=== PATIENT | male | born 1950 | race Caucasian/White ===

== ENCOUNTER → 2017-10-17 | Outpatient (CLI) | payer MEDICARE, BC ==
[~2017-10-17] MED LIST: GADOBUTROL 10 MMOL/10 ML PFS ONE
== END | disposition home or self-care (01) ==
LOC: CFH 13:56
PROVIDERS: ATTEND Genetic Counselor, MS
DX: K74.60 Unspecified cirrhosis of liver (principal); R16.1 Splenomegaly, not elsewhere classified
CPT/HCPCS: 74183; A9585

== ENCOUNTER 2017-10-20 11:01 | Day surgery (SDC) | payer OTHER, BC ==
[~2017-10-20] VITALS: Ht 198.1 cm; Wt 104.8 kg
[2017-10-20] MEDS ORDERED: LIDOCAINE 1%, 20ML ONE (11:35)
[2017-10-20 11:46] VITALS: BP 154/84
[2017-10-20 12:46] LABS: INTERNATIONAL NORMALIZED RATIO 1.24 (0.93-1.1); PROTHROMBIN TIME 12.7 Seconds (9.6-11.5)
[2017-10-20] MEDS ORDERED: FENTANYL PF 100 MCG/2ML ONE ×2 (13:20→14:13)
[2017-10-20] MEDS ORDERED: FLUMAZENIL 0.1 MG/1 ML, 5ML ONE (13:21)
[2017-10-20] MEDS ORDERED: MIDAZOLAM 1 MG/ML, 2ML ONE ×2 (13:21→14:14)
[2017-10-20] MEDS ORDERED: NALOXONE 1 MG/ML, 2ML ONE (13:21)
== END 2017-10-20 16:45 | disposition home or self-care (01) ==
LOC: OUT 11:01
PROVIDERS: ATTEND Genetic Counselor, MS
DX: K74.60 Unspecified cirrhosis of liver (principal); K74.0 Hepatic fibrosis; K76.0 Fatty (change of) liver, not elsewhere classified; I10 Essential (primary) hypertension; F10.10 Alcohol abuse, uncomplicated; Z87.891 Personal history of nicotine dependence
CPT/HCPCS: 36415; 47000; 76937; 77012; 85610; 88307; 99156; J2250; J3010; J3490; 99157; J2310

== ENCOUNTER → 2018-04-26 | Outpatient (CLI) | payer OTHER | END | disposition home or self-care (01) | LOC: CFH 12:14 | PROVIDERS: ATTEND Internal Medicine Critical Care Medicine | DX: R91.1 Solitary pulmonary nodule (principal); R06.00 Dyspnea, unspecified; R06.02 Shortness of breath | CPT/HCPCS: 71250 ==

== ENCOUNTER 2018-11-12 12:59 | Outpatient (CLI) | payer MEDICARE ==
[2018-11-12] MEDS ORDERED: GADOXETATE DISODIUM 2.5 MMOL/10 ML ONE (14:02)
== END 2018-11-12 23:59 | disposition home or self-care (01) ==
LOC: CFH 12:59
PROVIDERS: ATTEND Internal Medicine Gastroenterology
DX: K74.60 Unspecified cirrhosis of liver (principal); R16.1 Splenomegaly, not elsewhere classified; R16.0 Hepatomegaly, not elsewhere classified
CPT/HCPCS: 74183; A9581

== ENCOUNTER 2019-01-24 09:13 | Day surgery (SDC) | payer MEDICARE ==
[~2019-01-24] VITALS: Ht 198.1 cm; Wt 104.3 kg
[2019-01-24 10:00] VITALS: BP 133/77
[2019-01-24] MEDS ORDERED: SODIUM CHLORIDE 0.9% 1,000 ML IV SCH (10:01)
[2019-01-24] MEDS ORDERED: CEFAZOLIN PMX 1GM/50ML 50 ML ONE (10:07)
[2019-01-24] MEDS ORDERED: LIDOCAINE-MPF 1%, 5ML ONE (10:23)
[2019-01-24] MEDS ORDERED: FENTANYL PF 100 MCG/2ML ONE (10:27)
[2019-01-24] MEDS ORDERED: NALOXONE 1 MG/ML, 2ML ONE (10:27)
[2019-01-24] MEDS ORDERED: FLUMAZENIL 0.1 MG/1 ML, 5ML ONE (10:27)
[2019-01-24] MEDS ORDERED: MIDAZOLAM 1 MG/ML, 5ML ONE (10:27)
[2019-01-24] MEDS ORDERED: DOXorubicin 75 MG in SYRINGE 1 EA IART ONE (10:30)
[2019-01-24] MEDS ORDERED: CEFAZOLIN 1,000 MG in SODIUM CHLORIDE 0.9% 50 ML IV ONE (10:30)
== END 2019-01-24 15:30 | disposition home or self-care (01) ==
LOC: OUT 09:13 → EDSTATUS 10:30 → OUT 15:30
PROVIDERS: ATTEND Surgery
DX: K72.90 Hepatic failure, unspecified without coma (principal); K70.30 Alcoholic cirrhosis of liver without ascites; C22.8 Malignant neoplasm of liver, primary, unspecified as to type; K21.9 Gastro-esophageal reflux disease without esophagitis; I25.10 Atherosclerotic heart disease of native coronary artery without angina pectoris; F32.9 Major depressive disorder, single episode, unspecified; E11.9 Type 2 diabetes mellitus without complications; I10 Essential (primary) hypertension; Z79.84 Long term (current) use of oral hypoglycemic drugs
CPT/HCPCS: 36247; 37243; 99156; 99157; C1751; C1760; C1769; C1894; J0690; J2250; J3010; J9000; 75894; J2310

== ENCOUNTER → 2019-11-14 | Outpatient (CLI) | payer MEDICARE ==
[~2019-11-14] MED LIST changes: +AMLO10TA8 PO; +FLUO40CA2 PO; +FURO20TA3 PO; -GADOBUTROL 10 MMOL/10 ML PFS ONE; +HYDR25TA6 PO; +LISI40TA PO; +METO-99 PO; +PANT20TA3 PO; +RIFA550T4 PO; +TAMS-11 PO; +UMEC1DIS PO
== END | disposition home or self-care (01) ==
LOC: RAD 08:35
PROVIDERS: ATTEND Internal Medicine Gastroenterology
DX: I85.00 Esophageal varices without bleeding (principal); R07.89 Other chest pain
CPT/HCPCS: 74220

== ENCOUNTER 2019-11-18 06:15 | Inpatient (IN) | payer MEDICARE ==
[~2019-11-18] VITALS: Ht 196.8 cm; Wt 99.4 kg
--- NOTE | 2019-11-18 06:20 | NUR ---
Pattie garcia in [facility] - 11/18/19 at 0627 by NIRMALA Called, no response, walked to curb down to bathrooms.
--- NOTE | 2019-11-18 06:35 | NUR ---
PT BIB [facility] WITH MULTIPLE C/O GASTROINTESTINAL ISSUES. PT WITH NAUSEA AND VOMITING X 10 DAYS AND RECENT HISTORY OF LIVER CANCER WITH CHEMOTHERAPY. EN ROUTE, EMS GAVE 4 MG ZOFRAN AND 100 MCG FENTANYL IV. PT NOW 3/10 PAIN. PT FSBS 122 EN ROUTE. PT RECEIVED IV ACCESS AND 500 ML OF NS EN ROUTE TO HOSPITAL. UPON ARRIVAL TO [facility] ED, PT ATTACHED TO VS MACHINES. VSS. PT CHANGED INTO GOWN IN [facility]. CALL LIGHT IS WITHIN REACH. PT EDUCATED ON ER PROCESS AND POC AND VERBALIZES UNDERSTANDING. AWAITING ERP AT THIS TIME.
--- NOTE | 2019-11-18 06:57 | NUR ---
REPORT OF PT TO NEWOTN LOWE AND ALL QUESTIONS ANSWERED.
[2019-11-18] MEDS ORDERED: RIFA550T4 PO (06:58)
[2019-11-18] MEDS ORDERED: ONDANSETRON 2MG/ML, 2ML ONE (06:58)
[2019-11-18] MEDS ORDERED: MORPHINE SULFATE 4 MG/ML, 1ML ONE (06:58)
[2019-11-18] MEDS ORDERED: MORPHINE SULFATE 4 MG/ML, 1ML IVPush PRN (07:00)
[2019-11-18] MEDS ORDERED: ONDANSETRON 2MG/ML, 2ML IVPush ONE (07:00)
[2019-11-18] MEDS ORDERED: UMEC1DIS PO (07:00)
[2019-11-18] MEDS ORDERED: FLUO40CA2 PO ×2 (07:00→08:23)
[2019-11-18] MEDS ORDERED: SODIUM CHLORIDE FLUSH 10ML SYR IVF ONE (07:00)
--- NOTE | 2019-11-18 07:14 | NUR ---
RECEIVED REPORT FROM TARUN GLEZ. C/O SHOULDER AND NECK PAIN AND MEDICATED FOR SAME. PLACED ON MONITOR. LAB AT BEDSIDE
[2019-11-18 07:27] LABS: BASOPHILS # (AUTO) 0.01 x10^3/uL (0-0.1); BASOPHILS % (AUTO) 0 % (0-1); EOSINOPHILS # (AUTO) 0.03 x10^3/uL (0-0.4); EOSINOPHILS % (AUTO) 0 % (1-7); LYMPHOCYTES # (AUTO) 0.75 x10^3/uL (1-3.4); LYMPHOCYTES % (AUTO) 9 % (22-44); MD NO; MEAN CORPUSCULAR HGB CONC 33.6 g/dL (33.2-36.2); MEAN CORPUSCULAR VOLUME 92.3 fL (81-97); MEAN PLATELET VOLUME 8.3 fL (7.4-10.4); MONOCYTES # (AUTO) 0.88 x10^3/uL (0.2-0.8); MONOCYTES % (AUTO) 10 % (2-9); NEUTROPHILS % (AUTO) 81 % (42-75); PLATELET COUNT 165 x10^3/uL (130-400); RED CELL DISTRIBUTION WIDTH 13.5 % (9.4-14.8)
[2019-11-18 07:35] LABS: ALANINE AMINOTRANSFERASE 26 U/L (12-78); ALBUMIN 2.4 g/dL (3.4-5.0); ANION GAP 9 mmol/L (5-15); CALCIUM 8.1 mg/dL (8.5-10.1); CHLORIDE 106 mmol/L (98-107)
[2019-11-18 07:40] LABS: ALKALINE PHOSPHATASE 97 U/L (45-117); BILIRUBIN,TOTAL 2.5 mg/dL (0.2-1.0); CREATININE 1.17 mg/dL (0.7-1.3); TOTAL PROTEIN 5.8 g/dL (6.4-8.2); TROPONIN I < 0.015 ng/mL (0.000-0.045)
--- NOTE | 2019-11-18 07:45 | NUR ---
PAIN IMPROVED SINCE MEDICATED FOR SAME.
[2019-11-18 07:59] LABS: INTERNATIONAL NORMALIZED RATIO 1.37 (0.93-1.1); PROTHROMBIN TIME 14.6 Seconds (9.6-11.5)
[2019-11-18] MEDS ORDERED: LISI40TA PO (08:23)
[2019-11-18] MEDS ORDERED: HYDR25TA6 PO (08:23)
[2019-11-18] MEDS ORDERED: FURO20TA3 PO (08:23)
[2019-11-18] MEDS ORDERED: PANT20TA3 PO (08:23)
[2019-11-18] MEDS ORDERED: TAMS-11 PO (08:23)
[2019-11-18] MEDS ORDERED: METO-99 PO (08:23)
[2019-11-18] MEDS ORDERED: AMLO10TA8 PO (08:23)
[2019-11-18] MEDS ORDERED: OMNIPAQUE 350 MG/ML, 100ML BOTTLE ONE (08:27)
--- NOTE | 2019-11-18 08:28 | NUR ---
CT COMPLETED. CONTINUE TO MONITOR
--- NOTE | 2019-11-18 09:08 | NUR ---
PT UPDATED ON POC, EDUCATED ON URINE CLEAN CATCH. PT RESTING IN BED, NO SIGNS OF DISTRESS.
[2019-11-18] MEDS ORDERED: LIDOCAINE 1%, 10ML ONE (09:11)
--- NOTE | 2019-11-18 09:14 | NUR ---
PT TO IR
[2019-11-18] MEDS ORDERED: ONDANSETRON 2MG/ML, 2ML IVPush PRN (10:00)
[2019-11-18] MEDS ORDERED: ONDANSETRON ODT 4 MG PO PRN (10:00)
[2019-11-18] MEDS ORDERED: POTASSIUM CHLORIDE 10% 40 MEQ/30 ML UDC PO ONE (10:00)
[2019-11-18] MEDS ORDERED: hydrALAzine 20 MG/ML, 1ML IVPush PRN (10:00)
[2019-11-18] MEDS: LACTULOSE 20 GM/30 ML UDC PO SCH (10:28)
[2019-11-18] MEDS ORDERED: PHYTONADIONE 10 MG/ML, 1ML IM ONE (10:30)
--- NOTE | 2019-11-18 10:31 | NUR ---
PT RETURNED FROM IR, UNSUCCESSFUL, 2ND IV ESTABLISHED AFTER LABS DRAWN, PT TOLERATED WELL, MEDICATED ACCORDING TO MAR. Addendum: 11/18/19 at 1157 by LUPE "UNSUCCESSFUL" FROM NOTE TO MEAN, 3L REMOVED BUT BLOOD NOTICED.
--- NOTE | 2019-11-18 10:38 | NUR ---
GI VICE PRESIDENT PROCESS AT BEDSIDE. AWARE OF CURRENT BP. PT STATING HE IS FEELING SOMEWHAT WEAKER SINCE PARACENTESIS
--- NOTE | 2019-11-18 11:52 | NUR ---
REPORT GIVEN BY KRISTYN TO TELE NURSE. PT TRANSPORTED TO FLOOR
[2019-11-18] MEDS ORDERED: BACLOFEN 10 MG TABLET PO PRN (12:31)
[2019-11-18 12:38] VITALS: BP 97/60
[2019-11-18] MEDS: morphine SULFATE 10 MG/ML, 1ML IVPush PRN ×3 (13:47→19:15)
[2019-11-18] MEDS: CEFTRIAXONE PMX 1GM/50ML 50 ML IV SCH (14:00)
[2019-11-18 15:43] LABS: TROPONIN I 0.295 ng/mL (0.000-0.045)
[2019-11-18 19:35] VITALS: BP 106/57
[2019-11-18 19:50] LABS: MICROSCOPIC INDICATED
[2019-11-18 20:15] LABS: CULTURE INDICATED? NO
[2019-11-18 20:37] LABS: TROPONIN I 0.888 ng/mL (0.000-0.045)
[2019-11-18] MEDS: RIFAXIMIN 550 MG TABLET PO SCH (21:51)
[2019-11-18 22:17] VITALS: BP 146/72
[2019-11-19 01:04] VITALS: BP 119/63
[2019-11-19 05:01] LABS: ALANINE AMINOTRANSFERASE 44 U/L (12-78); ALBUMIN 2.5 g/dL (3.4-5.0); ANION GAP 7 mmol/L (5-15); CALCIUM 8.1 mg/dL (8.5-10.1); CHLORIDE 104 mmol/L (98-107)
[2019-11-19 05:06] LABS: ALKALINE PHOSPHATASE 98 U/L (45-117); CREATININE 1.58 mg/dL (0.7-1.3); TROPONIN I 0.962 ng/mL (0.000-0.045)
[2019-11-19 06:06] LABS: BASOPHILS # (AUTO) 0.02 x10^3/uL (0-0.1); BASOPHILS % (AUTO) 0 % (0-1); EOSINOPHILS # (AUTO) 0.27 x10^3/uL (0-0.4); EOSINOPHILS % (AUTO) 4 % (1-7); LYMPHOCYTES # (AUTO) 0.94 x10^3/uL (1-3.4); LYMPHOCYTES % (AUTO) 13 % (22-44); MD NO; MEAN CORPUSCULAR HEMOGLOBIN 31.3 pg (27.5-34.5); MEAN CORPUSCULAR HGB CONC 33.5 g/dL (33.2-36.2); MEAN CORPUSCULAR VOLUME 93.3 fL (81-97); MEAN PLATELET VOLUME 8.8 fL (7.4-10.4); MONOCYTES # (AUTO) 0.95 x10^3/uL (0.2-0.8); MONOCYTES % (AUTO) 13 % (2-9); NEUTROPHILS % (AUTO) 71 % (42-75); PLATELET COUNT 142 x10^3/uL (130-400)
[2019-11-19 06:50] VITALS: BP 127/63
[2019-11-19] MEDS: RIFAXIMIN 550 MG TABLET PO SCH ×2 (08:37→20:46)
[2019-11-19] MEDS: LACTULOSE 20 GM/30 ML UDC PO SCH (08:37)
[2019-11-19] MEDS: FLUOXETINE HCL 20 MG CAPSULE PO SCH (08:37)
[2019-11-19] MEDS: TAMSULOSIN 0.4 MG CAP.ER.24H PO SCH (08:38)
[2019-11-19] MEDS: PANTOPRAZOLE 20MG TABLET PO SCH (08:38)
[2019-11-19] MEDS ORDERED: METOPROLOL TARTRATE 100 MG TAB PO SCH (09:00)
[2019-11-19] MEDS ORDERED: LISINOPRIL 40 MG TABLET PO SCH (09:00)
[2019-11-19] MEDS ORDERED: FUROSEMIDE 20 MG TABLET PO SCH (09:00)
[2019-11-19] MEDS: TEMPLATE NON-FORMULARY MED. (Umeclidinium Brm/Vilanterol Tr (Anoro Ellipta 62.5-25 Mcg Inh PO SCH (09:00)
[2019-11-19] MEDS: ONDANSETRON 2MG/ML, 2ML IVPush SCH ×3 (09:59→22:00)
[2019-11-19] MEDS ORDERED: POTASSIUM CHLORIDE 10 MEQ in SODIUM CHLORIDE 0.9% 250 ML IV ONE (10:00)
[2019-11-19 10:18] LABS: TROPONIN I 0.559 ng/mL (0.000-0.045)
[2019-11-19] MEDS: SIMETHICONE 125 MG CHEW TAB PO SCH ×3 (11:53→20:47)
[2019-11-19] MEDS: CEFTRIAXONE PMX 1GM/50ML 50 ML IV SCH (11:54)
[2019-11-19 13:50] VITALS: BP 121/66
[2019-11-19] MEDS: morphine SULFATE 10 MG/ML, 1ML IVPush PRN (13:59)
[2019-11-19] MEDS: ALBUMIN HUMAN 25% 100 ML IV SCH ×2 (16:59→22:36)
[2019-11-19 19:40] VITALS: BP 130/64
[2019-11-20 01:38] VITALS: BP 128/61
[2019-11-20] MEDS: ONDANSETRON 2MG/ML, 2ML IVPush SCH ×4 (04:11→22:10)
[2019-11-20] MEDS: ALBUMIN HUMAN 25% 100 ML IV SCH ×2 (04:13→10:11)
[2019-11-20 07:18] LABS: ALANINE AMINOTRANSFERASE 40 U/L (12-78); ANION GAP 7 mmol/L (5-15); CALCIUM 8.2 mg/dL (8.5-10.1); CHLORIDE 102 mmol/L (98-107)
[2019-11-20 07:21] LABS: ALKALINE PHOSPHATASE 93 U/L (45-117); BILIRUBIN,TOTAL 2.5 mg/dL (0.2-1.0); CREATININE 1.15 mg/dL (0.7-1.3); TOTAL PROTEIN 6.1 g/dL (6.4-8.2)
[2019-11-20 07:59] LABS: INTERNATIONAL NORMALIZED RATIO 1.25 (0.93-1.1); PROTHROMBIN TIME 13.3 Seconds (9.6-11.5)
[2019-11-20 08:14] LABS: BASOPHILS # (AUTO) 0.02 x10^3/uL (0-0.1); BASOPHILS % (AUTO) 0 % (0-1); EOSINOPHILS # (AUTO) 0.12 x10^3/uL (0-0.4); EOSINOPHILS % (AUTO) 2 % (1-7); LYMPHOCYTES # (AUTO) 0.71 x10^3/uL (1-3.4); LYMPHOCYTES % (AUTO) 10 % (22-44); MD SCAN; MEAN CORPUSCULAR HEMOGLOBIN 31.4 pg (27.5-34.5); MEAN CORPUSCULAR HGB CONC 33.7 g/dL (33.2-36.2); MEAN CORPUSCULAR VOLUME 93.1 fL (81-97); MEAN PLATELET VOLUME 8.5 fL (7.4-10.4); MONOCYTES # (AUTO) 0.85 x10^3/uL (0.2-0.8); MONOCYTES % (AUTO) 13 % (2-9); NEUTROPHILS # (AUTO) 5.15 x10^3/uL (1.8-6.8); NEUTROPHILS % (AUTO) 75 % (42-75); PLATELET COUNT 97 x10^3/uL (130-400); RED BLOOD COUNT 3.43 x10^6/uL (4.38-5.82); RED CELL DISTRIBUTION WIDTH 13.4 % (9.4-14.8)
[2019-11-20] MEDS: TEMPLATE NON-FORMULARY MED. (Umeclidinium Brm/Vilanterol Tr (Anoro Ellipta 62.5-25 Mcg Inh PO SCH (08:18)
[2019-11-20] MEDS: TAMSULOSIN 0.4 MG CAP.ER.24H PO SCH (08:21)
[2019-11-20] MEDS: LACTULOSE 20 GM/30 ML UDC PO SCH (08:21)
[2019-11-20] MEDS: FLUOXETINE HCL 20 MG CAPSULE PO SCH (08:21)
[2019-11-20] MEDS: SIMETHICONE 125 MG CHEW TAB PO SCH ×4 (08:21→22:08)
[2019-11-20] MEDS: RIFAXIMIN 550 MG TABLET PO SCH ×2 (08:21→22:08)
[2019-11-20] MEDS: PANTOPRAZOLE 20MG TABLET PO SCH (08:21)
[2019-11-20 09:06] VITALS: BP 130/57
[2019-11-20] MEDS ORDERED: GADOTERATE 10 MMOL/20 ML VIAL ONE (12:49)
[2019-11-20] MEDS: CEFTRIAXONE PMX 1GM/50ML 50 ML IV SCH (13:35)
[2019-11-20 16:17] VITALS: BP 106/62
[2019-11-20] MEDS ORDERED: MELATONIN 3 MG TABLET PO PRN (16:30)
[2019-11-20 20:06] VITALS: BP 106/58
[2019-11-21 02:05] VITALS: BP 126/61
[2019-11-21] MEDS: ONDANSETRON 2MG/ML, 2ML IVPush SCH (04:23)
[2019-11-21 05:22] LABS: BASOPHILS # (AUTO) 0.01 x10^3/uL (0-0.1); BASOPHILS % (AUTO) 0 % (0-1); EOSINOPHILS # (AUTO) 0.08 x10^3/uL (0-0.4); EOSINOPHILS % (AUTO) 1 % (1-7); INTERNATIONAL NORMALIZED RATIO 1.29 (0.93-1.1); LYMPHOCYTES # (AUTO) 0.65 x10^3/uL (1-3.4); LYMPHOCYTES % (AUTO) 9 % (22-44); MD NO; MEAN CORPUSCULAR HEMOGLOBIN 31.9 pg (27.5-34.5); MEAN CORPUSCULAR HGB CONC 34.5 g/dL (33.2-36.2); MEAN CORPUSCULAR VOLUME 92.4 fL (81-97); MEAN PLATELET VOLUME 8.4 fL (7.4-10.4); MONOCYTES # (AUTO) 0.78 x10^3/uL (0.2-0.8); MONOCYTES % (AUTO) 11 % (2-9); NEUTROPHILS # (AUTO) 5.42 x10^3/uL (1.8-6.8); NEUTROPHILS % (AUTO) 78 % (42-75); PLATELET COUNT 100 x10^3/uL (130-400); PROTHROMBIN TIME 13.7 Seconds (9.6-11.5); RED BLOOD COUNT 3.39 x10^6/uL (4.38-5.82); RED CELL DISTRIBUTION WIDTH 13.4 % (9.4-14.8)
[2019-11-21 05:26] LABS: ALBUMIN 2.9 g/dL (3.4-5.0); ANION GAP 6 mmol/L (5-15); CALCIUM 8.4 mg/dL (8.5-10.1); CHLORIDE 103 mmol/L (98-107)
[2019-11-21 05:29] LABS: ALANINE AMINOTRANSFERASE 35 U/L (12-78); ALKALINE PHOSPHATASE 83 U/L (45-117); BILIRUBIN,TOTAL 2.3 mg/dL (0.2-1.0); CREATININE 0.74 mg/dL (0.7-1.3); TOTAL PROTEIN 6.2 g/dL (6.4-8.2)
[2019-11-21] MEDS ORDERED: POTASSIUM CHLORIDE 20 MEQ TAB.ER.PRT PO ONE (06:30)
[2019-11-21 06:47] VITALS: BP 136/61
[2019-11-21] MEDS: PANTOPRAZOLE 20MG TABLET PO SCH (08:44)
[2019-11-21] MEDS: RIFAXIMIN 550 MG TABLET PO SCH (08:44)
[2019-11-21] MEDS: TAMSULOSIN 0.4 MG CAP.ER.24H PO SCH (08:44)
[2019-11-21] MEDS: FLUOXETINE HCL 20 MG CAPSULE PO SCH (08:45)
[2019-11-21] MEDS: SIMETHICONE 125 MG CHEW TAB PO SCH ×2 (08:45→11:16)
[2019-11-21] MEDS: LACTULOSE 20 GM/30 ML UDC PO SCH (08:47)
[2019-11-21] MEDS: TEMPLATE NON-FORMULARY MED. (Umeclidinium Brm/Vilanterol Tr (Anoro Ellipta 62.5-25 Mcg Inh PO SCH (08:47)
[2019-11-21] MEDS ORDERED: FUROSEMIDE 20 MG TABLET PO SCH (09:00)
[2019-11-21] MEDS ORDERED: SPIRONOLACTONE 50 MG TABLET PO SCH (09:00)
[2019-11-21] MEDS ORDERED: SPIR50TA PO (11:01)
[2019-11-21] MEDS ORDERED: ONDA4TAB13 PO (11:01)
[2019-11-21] MEDS ORDERED: CIPR500T87 PO (11:05)
[2019-11-21 12:01] VITALS: BP 128/66
[2019-11-21 12:38] VITALS: BP 124/55
[2019-11-21] MEDS: CEFTRIAXONE PMX 1GM/50ML 50 ML IV SCH (13:30)
== END 2019-11-21 14:00 | disposition home health service (06) | DRG 432 ==
LOC: ED 08:41 → SUATTDRO 09:34 → EDIP 09:51 → 4EST 12:21 → DCLOUNGE 11-21 13:30
PROVIDERS: ADMIT Hospitalist; ATTEND Hospitalist
PROC: 0W9G3ZZ Drainage of Peritoneal Cavity, Percutaneous Approach (ICD-10-PCS; principal; 2019-11-18)
DX: K70.31 Alcoholic cirrhosis of liver with ascites (principal); I81 Portal vein thrombosis; I21.A1 Myocardial infarction type 2; K65.2 Spontaneous bacterial peritonitis; D62 Acute posthemorrhagic anemia; C22.0 Liver cell carcinoma; I50.30 Unspecified diastolic (congestive) heart failure; I85.00 Esophageal varices without bleeding; N17.9 Acute kidney failure, unspecified; K56.7 Ileus, unspecified; K72.90 Hepatic failure, unspecified without coma; E87.6 Hypokalemia; N28.9 Disorder of kidney and ureter, unspecified; M25.511 Pain in right shoulder; J44.9 Chronic obstructive pulmonary disease, unspecified; F41.9 Anxiety disorder, unspecified; K21.9 Gastro-esophageal reflux disease without esophagitis; F45.8 Other somatoform disorders; I11.0 Hypertensive heart disease with heart failure; I25.10 Atherosclerotic heart disease of native coronary artery without angina pectoris; Z51.5 Encounter for palliative care; Z85.05 Personal history of malignant neoplasm of liver; Z86.19 Personal history of other infectious and parasitic diseases; Z91.14 Patient's other noncompliance with medication regimen; I25.2 Old myocardial infarction; Z95.5 Presence of coronary angioplasty implant and graft; Z98.1 Arthrodesis status; Y84.4 Aspiration of fluid as the cause of abnormal reaction of the patient, or of later complication, without mention of misadventure at the time of the procedure; Y92.238 Other place in hospital as the place of occurrence of the external cause; S39.91XA Unspecified injury of abdomen, initial encounter
CPT/HCPCS: 36415; 49083; 71046; 74177; 74183; 80053; 81001; 82042; 82105; 82140; 83690; 83735; 84157; 84300; 84484; 85014; 85018; 85025; 85610; 85730; 86850; 86900; 87070; 87205; 88112; 88305; 89051; 93005; 93306; 96374; 96375; 99291; G0378; J0696; J2405; J3430; J3480; P9047; Q9967; A9575; J2270; J7050

== ENCOUNTER 2019-12-03 10:35 | Outpatient (CLI) | payer MEDICARE ==
[~2019-12-03 10:35] MED LIST changes: +CIPR500T87 PO; +ONDA4TAB13 PO; +SPIR50TA PO
[2019-12-03] MEDS ORDERED: LIDOCAINE 1%, 10ML ONE (10:40)
== END 2019-12-03 23:59 | disposition home or self-care (01) ==
LOC: RAD 10:35 → EDSTATUS 11:00 → RAD 23:59
PROVIDERS: ATTEND Internal Medicine Gastroenterology
DX: K70.31 Alcoholic cirrhosis of liver with ascites (principal); C22.0 Liver cell carcinoma; Z79.2 Long term (current) use of antibiotics; Z79.899 Other long term (current) drug therapy; Z72.89 Other problems related to lifestyle; Z83.3 Family history of diabetes mellitus; Z82.49 Family history of ischemic heart disease and other diseases of the circulatory system
CPT/HCPCS: 49083

== ENCOUNTER → 2019-12-10 | Outpatient (CLI) | payer MEDICARE ==
[~2019-12-10] MED LIST changes: +ALBUMIN HUMAN 25% 12.5 GM/50 ML ONE; +LIDOCAINE 1%, 10ML ONE
== END | disposition home or self-care (01) ==
LOC: RAD 14:40
PROVIDERS: ATTEND Genetic Counselor, MS
DX: K70.31 Alcoholic cirrhosis of liver with ascites (principal)
CPT/HCPCS: 49083; P9047

== ENCOUNTER → 2019-12-16 | Outpatient (CLI) | payer MEDICARE ==
[~2019-12-16] MED LIST changes: -ALBUMIN HUMAN 25% 12.5 GM/50 ML ONE
== END | disposition home or self-care (01) ==
LOC: RAD 15:14
PROVIDERS: ATTEND Internal Medicine Gastroenterology
DX: R18.8 Other ascites (principal); K74.60 Unspecified cirrhosis of liver
CPT/HCPCS: 49083

== ENCOUNTER → 2019-12-23 | Outpatient (CLI) | payer MEDICARE ==
[~2019-12-23] MED LIST changes: +ALBUMIN HUMAN 25% 12.5 GM/50 ML ONE
== END | disposition home or self-care (01) ==
LOC: RAD 09:37
PROVIDERS: ATTEND Internal Medicine Gastroenterology
DX: R18.8 Other ascites (principal); K74.60 Unspecified cirrhosis of liver
CPT/HCPCS: 49083; P9047

== ENCOUNTER 2019-12-24 07:53 | Outpatient (CLI) | payer MEDICARE ==
[~2019-12-24 07:53] MED LIST changes: -ALBUMIN HUMAN 25% 12.5 GM/50 ML ONE; -LIDOCAINE 1%, 10ML ONE
== END 2019-12-24 23:59 | disposition home or self-care (01) ==
LOC: RAD 07:53
PROVIDERS: ATTEND Specialist
DX: C22.0 Liver cell carcinoma (principal)
CPT/HCPCS: 78306; A9503

== ENCOUNTER → 2019-12-30 | Outpatient (CLI) | payer MEDICARE ==
[~2019-12-30] MED LIST changes: +ALBUMIN HUMAN 25% 12.5 GM/50 ML ONE; +LIDOCAINE 1%, 10ML ONE
== END | disposition home or self-care (01) ==
LOC: RAD 11:37
PROVIDERS: ATTEND Internal Medicine Gastroenterology
DX: R18.8 Other ascites (principal); K74.60 Unspecified cirrhosis of liver
CPT/HCPCS: 49083; P9047

== ENCOUNTER 2020-01-06 09:48 | Outpatient (CLI) | payer MEDICARE ==
[~2020-01-06 09:48] MED LIST changes: -ALBUMIN HUMAN 25% 12.5 GM/50 ML ONE; -LIDOCAINE 1%, 10ML ONE
[2020-01-06] MEDS ORDERED: LIDOCAINE 1%, 10ML ONE (10:04)
[2020-01-06] MEDS ORDERED: ALBUMIN HUMAN 25% 12.5 GM/50 ML ONE (15:40)
== END 2020-01-06 23:59 | disposition home or self-care (01) ==
LOC: RAD 09:48
PROVIDERS: ATTEND Internal Medicine Gastroenterology
DX: R18.8 Other ascites (principal); K74.60 Unspecified cirrhosis of liver
CPT/HCPCS: 49083; P9047

== ENCOUNTER 2020-01-13 09:37 | Outpatient (CLI) | payer MEDICARE ==
[2020-01-13] MEDS ORDERED: LIDOCAINE 1%, 10ML ONE (09:38)
[2020-01-13] MEDS ORDERED: ALBUMIN HUMAN 25%, 25GM/100ML ONE (18:26)
== END 2020-01-13 23:59 | disposition home or self-care (01) ==
LOC: RAD 09:37
PROVIDERS: ATTEND Internal Medicine Gastroenterology
DX: R18.8 Other ascites (principal); K74.60 Unspecified cirrhosis of liver
CPT/HCPCS: 49083; P9047

== ENCOUNTER → 2020-01-20 | Outpatient (CLI) | payer MEDICARE ==
[~2020-01-20] MED LIST changes: +LIDOCAINE 1%, 10ML ONE
== END | disposition home or self-care (01) ==
LOC: CFH 07:30
PROVIDERS: ATTEND Internal Medicine Gastroenterology
DX: R18.8 Other ascites (principal); K74.60 Unspecified cirrhosis of liver; C22.0 Liver cell carcinoma; R16.1 Splenomegaly, not elsewhere classified
CPT/HCPCS: 49083; 76700

== ENCOUNTER → 2020-01-27 | Outpatient (CLI) | payer MEDICARE ==
[~2020-01-27] MED LIST changes: +ALBUMIN HUMAN 25%, 25GM/100ML ONE
== END | disposition home or self-care (01) ==
LOC: RAD 10:20
PROVIDERS: ATTEND Internal Medicine Gastroenterology
DX: R18.8 Other ascites (principal); K74.60 Unspecified cirrhosis of liver
CPT/HCPCS: 49083; P9047

== ENCOUNTER 2020-01-31 08:00 | Outpatient (CLI) | payer MEDICARE ==
[~2020-01-31 08:00] MED LIST changes: -ALBUMIN HUMAN 25%, 25GM/100ML ONE; -LIDOCAINE 1%, 10ML ONE
[2020-01-31] MEDS ORDERED: LIDOCAINE 1%, 10ML ONE (14:22)
== END 2020-01-31 23:59 | disposition home or self-care (01) ==
LOC: RAD 08:00
PROVIDERS: ATTEND Specialist
DX: R18.8 Other ascites (principal); K74.60 Unspecified cirrhosis of liver; J44.9 Chronic obstructive pulmonary disease, unspecified; Z79.2 Long term (current) use of antibiotics; Z79.899 Other long term (current) drug therapy; Z72.89 Other problems related to lifestyle; Z82.49 Family history of ischemic heart disease and other diseases of the circulatory system; Z83.3 Family history of diabetes mellitus
CPT/HCPCS: 49083

== ENCOUNTER → 2020-02-04 | Outpatient (CLI) | payer MEDICARE ==
[~2020-02-04] MED LIST changes: +ALBUMIN HUMAN 25% 12.5 GM/50 ML ONE; +LIDOCAINE 1%, 10ML ONE
== END | disposition home or self-care (01) ==
LOC: RAD 09:12
PROVIDERS: ATTEND Specialist
DX: R18.8 Other ascites (principal); K74.60 Unspecified cirrhosis of liver; N50.82 Scrotal pain; K40.90 Unilateral inguinal hernia, without obstruction or gangrene, not specified as recurrent; I86.1 Scrotal varices
CPT/HCPCS: 49083; 76870; P9047

== ENCOUNTER → 2020-02-07 | Outpatient (CLI) | payer MEDICARE ==
[~2020-02-07] MED LIST changes: -ALBUMIN HUMAN 25% 12.5 GM/50 ML ONE; -LIDOCAINE 1%, 10ML ONE
== END | disposition home or self-care (01) ==
LOC: RAD 13:19
PROVIDERS: ATTEND Specialist
DX: R18.8 Other ascites (principal); K74.60 Unspecified cirrhosis of liver
CPT/HCPCS: 49083

== ENCOUNTER 2020-02-12 11:41 | Outpatient (CLI) | payer MEDICARE ==
[~2020-02-12 11:41] MED LIST changes: +LIDOCAINE 1%, 10ML ONE
[2020-02-12] MEDS ORDERED: LIDOCAINE 1%, 10ML ONE (11:46)
== END 2020-02-12 23:59 | disposition home or self-care (01) ==
LOC: RAD 11:41
PROVIDERS: ATTEND Specialist
DX: R18.8 Other ascites (principal)
CPT/HCPCS: 49083

== ENCOUNTER 2020-02-18 11:35 | Outpatient (CLI) | payer MEDICARE ==
[~2020-02-18 11:35] MED LIST changes: -LIDOCAINE 1%, 10ML ONE
[2020-02-18] MEDS ORDERED: LIDOCAINE 1%, 10ML ONE (12:19)
== END 2020-02-18 23:59 | disposition home or self-care (01) ==
LOC: RAD 11:35
PROVIDERS: ATTEND Specialist
DX: R18.0 Malignant ascites (principal); C22.0 Liver cell carcinoma
CPT/HCPCS: 49083

== ENCOUNTER 2020-02-23 15:24 | Emergency (ER) | payer MEDICARE ==
[~2020-02-23] VITALS: Ht 198.1 cm; Wt 88.4 kg
--- NOTE | 2020-02-23 15:24 | NUR ---
Pt BIB [facility] from home-c/o increased generalized weakness and SOB over the last week. Pt with hx liver CA-diagnosed 6 months ago. Pt states he has been receiving immunotherapy treatments at Dr. Nolan's office. Pt able to stand but is very weak appears jaundiced with firm rounded abd. Pt states nausea while eating, not currently nauseated. Pt placed in gown, positioned for comfort in bed with pillows and warm blankets. Continuout heart, oxygen and BP monitors applied, all safety measures observed.
[2020-02-23 15:48] LABS: BASOPHILS # (AUTO) 0.01 x10^3/uL (0-0.1); BASOPHILS % (AUTO) 0 % (0-1); EOSINOPHILS # (AUTO) 0.23 x10^3/uL (0-0.4); EOSINOPHILS % (AUTO) 2 % (1-7); LYMPHOCYTES # (AUTO) 0.68 x10^3/uL (1-3.4); LYMPHOCYTES % (AUTO) 7 % (22-44); MD NO; MEAN CORPUSCULAR HEMOGLOBIN 30.7 pg (27.5-34.5); MEAN CORPUSCULAR HGB CONC 33.4 g/dL (33.2-36.2); MEAN PLATELET VOLUME 7.7 fL (7.4-10.4); MONOCYTES # (AUTO) 0.43 x10^3/uL (0.2-0.8); MONOCYTES % (AUTO) 5 % (2-9); NEUTROPHILS # (AUTO) 8.27 x10^3/uL (1.8-6.8); NEUTROPHILS % (AUTO) 86 % (42-75); PLATELET COUNT 120 x10^3/uL (130-400); RED BLOOD COUNT 4.83 x10^6/uL (4.38-5.82); RED CELL DISTRIBUTION WIDTH 18.7 % (9.4-14.8)
[2020-02-23 15:57] LABS: INTERNATIONAL NORMALIZED RATIO 1.45 (0.93-1.1); PROTHROMBIN TIME 15.4 Seconds (9.6-11.5)
--- NOTE | 2020-02-23 15:58 | NUR ---
Pt positioned for comfort in bed with additional warm blankets, denies other needs.
[2020-02-23 16:00] LABS: ALANINE AMINOTRANSFERASE 29 U/L (12-78); ALBUMIN 1.7 g/dL (3.4-5.0); ANION GAP 6 mmol/L (5-15); CALCIUM 8.4 mg/dL (8.5-10.1); CHLORIDE 100 mmol/L (98-107); CREATININE 1.34 mg/dL (0.7-1.3)
[2020-02-23] MEDS ORDERED: SODIUM CHLORIDE FLUSH 10ML SYR IVF ONE (16:00)
[2020-02-23] MEDS ORDERED: ONDANSETRON 2MG/ML, 2ML IVPush ONE (16:00)
[2020-02-23 16:05] LABS: ALKALINE PHOSPHATASE 202 U/L (45-117); BILIRUBIN,TOTAL 4.2 mg/dL (0.2-1.0)
--- NOTE | 2020-02-23 16:18 | NUR ---
Pt to CT via [facility] at this time.
[2020-02-23 16:34] LABS: TROPONIN I < 0.015 ng/mL (0.000-0.045)
[2020-02-23] MEDS ORDERED: OMNIPAQUE 350 MG/ML, 100ML BOTTLE ONE (16:34)
[2020-02-23] MEDS ORDERED: SUCR1TAB PO (16:43)
[2020-02-23] MEDS ORDERED: OXYC5TAB3 PO (16:43)
--- NOTE | 2020-02-23 16:43 | NUR ---
Pt back from CT, PRACHIN, requesting food.
--- NOTE | 2020-02-23 17:06 | NUR ---
Dr. Calhoun at bedside to evaluate pt.
[2020-02-23] MEDS ORDERED: SODIUM CHLORIDE 0.9% 1,000ML IVBOLUS ONE (17:30)
--- NOTE | 2020-02-23 17:50 | NUR ---
Pt ambulatory to bathroom and back to bed with SBA. Pt repositioned for comfort in bed. Pt given broth to drink per Dr. Calhoun. Pt tolerating broth well without N/V. Pt requesting information on hospice care. Bettina SW at bedside to speak with pt and his .
[2020-02-23] MEDS ORDERED: HYDROmorphone 1 MG/ML, 1ML INJ ONE (18:21)
[2020-02-23] MEDS ORDERED: FENTANYL PF 100 MCG/2ML IVPush ONE (18:30)
[2020-02-23] MEDS ORDERED: HYDROmorphone 1 MG/ML, 1ML INJ IV ONE (18:30)
--- NOTE | 2020-02-23 18:37 | NUR ---
Pt and his decided they would like to be discharged home and contact their primary care doctor to arrange for pt to be on hospice care tomorrow. Pt requesting medication for 6/10 diffuse aching pain in his abd. Discussed with Dr. Calhoun. Pt medicated per MAR for pain. Pt provided with lab and imaging results per request so that they can give them to the hospice company they choose. Pt and his agreeable to POC and deny other needs.
--- NOTE | 2020-02-23 19:09 | NUR ---
Pt ambulatory to bathroom and back to room where he was assisted by his to dress. Pt able to transfer to wheelchair with SBA. Pt states pain improved to 2/10 after Dilaudid.
[2020-02-23 19:10] VITALS: BP 118/67
== END 2020-02-23 19:12 | disposition home or self-care (01) ==
LOC: ED 16:49
DX: J91.0 Malignant pleural effusion (principal); C22.8 Malignant neoplasm of liver, primary, unspecified as to type; C78.00 Secondary malignant neoplasm of unspecified lung; E86.0 Dehydration; R94.31 Abnormal electrocardiogram [ECG] [EKG]; N28.9 Disorder of kidney and ureter, unspecified; I10 Essential (primary) hypertension; K21.9 Gastro-esophageal reflux disease without esophagitis
CPT/HCPCS: 36415; 71045; 74177; 80053; 82140; 83690; 83880; 84484; 85025; 85610; 93005; 96360; 99285; J7030; Q9967

== ENCOUNTER 2020-02-24 14:04 | Outpatient (CLI) | payer MEDICARE ==
[~2020-02-24 14:04] MED LIST changes: +OXYC5TAB3 PO; +SUCR1TAB PO
[2020-02-24] MEDS ORDERED: LIDOCAINE 1%, 10ML ONE (14:31)
== END 2020-02-24 23:59 | disposition home or self-care (01) ==
LOC: RAD 14:04
PROVIDERS: ATTEND Specialist
DX: R18.0 Malignant ascites (principal); C22.0 Liver cell carcinoma
CPT/HCPCS: 49083